=== PATIENT | female | born 1980 | race Caucasian/White ===

== ENCOUNTER → 2016-10-03 | Outpatient (CLI) | payer OTHER ==
[~2016-10-03] MED LIST: SULF800T23 PO
== END | disposition home or self-care (01) ==
LOC: C.PAPS 09:09
PROVIDERS: ATTEND Physician Assistant
DX: Z01.419 Encounter for gynecological examination (general) (routine) without abnormal findings (principal)

== ENCOUNTER → 2016-10-03 | Outpatient (CLI) | payer OTHER ==
[2016-10-03 15:57] LABS: URINE APPEARANCE CLEAR (CLEAR); URINE BILIRUBIN NEG (NEG); URINE COLOR YELLOW; URINE NITRITE NEG (NEG); URINE PH 6.5 (4.5-7.5); URINE SPECIFIC GRAVITY 1.005 (1.000-1.030); UROBILINOGEN NEG (NEG)
[2016-10-03 16:03] LABS: MANUAL MICROSCOPIC REQUIRED? NO; REVIEW REQ? NO
[2016-10-06 13:59] LABS: CHLAMYDIA TRACH RNA*** NOT DETECTED (NOT DETECTED); GC (NEIS GONORRHOEAE)RNA** NOT DETECTED (NOT DETECTED)
== END | disposition home or self-care (01) ==
LOC: C.LABSPEC 15:46
PROVIDERS: ATTEND Physician Assistant
DX: Z11.3 Encounter for screening for infections with a predominantly sexual mode of transmission (principal); R39.9 Unspecified symptoms and signs involving the genitourinary system

== ENCOUNTER → 2016-10-03 | Outpatient (CLI) | payer OTHER ==
[2016-10-03 14:38] LABS: HEMATOCRIT 40.5 % (37-47); MEAN CELL VOLUME 93.3 fL (80-100); MEAN CORPUSCULAR HEMOGLOBIN 31.1 pg (25-34); MEAN CORPUSCULAR HGB CONC 33.3 g/dl (32-36); MEAN PLATELET VOLUME 10.8 fL (7.4-10.4); PLATELET COUNT 235 K/uL (130-400); RED BLOOD COUNT 4.34 M/uL (4.2-5.4); WHITE BLOOD COUNT 7.68 K/uL (4.8-10.8)
[2016-10-03 14:55] LABS: PREG INTERNAL NEGATIVE QC NEG CLEAR BACKGROUND; PREG INTERNAL POSITIVE QC POS CONTROL LINE
[2016-10-04 23:21] LABS: RAPID PLASMA REAGIN NONREACTIVE (NONREACT)
== END | disposition home or self-care (01) ==
LOC: C.LAB1850 13:04
PROVIDERS: ATTEND Physician Assistant
DX: N92.0 Excessive and frequent menstruation with regular cycle (principal); Z11.3 Encounter for screening for infections with a predominantly sexual mode of transmission

== ENCOUNTER 2017-03-25 02:40 | Emergency (ER) | payer OTHER ==
[~2017-03-25] VITALS: Ht 162.6 cm; Wt 79.5 kg
[2017-03-25 02:42] VITALS: TEMP 36.6; Ht 162.6 cm; Wt 79.5 kg
[2017-03-25 03:13] LABS: BASO % 0.3 %; BASO ABS # 0.04 K/uL (0-0.2); COMPLETE YES; EOS % 1.8 %; IG% 0.3 %; LYMPH % 30.2 %; LYMPH ABS # 4.47 K/uL (1.2-3.4); MEAN CELL VOLUME 92.5 fL (80-100); MEAN CORPUSCULAR HEMOGLOBIN 31.6 pg (25-34); MEAN CORPUSCULAR HGB CONC 34.2 g/dl (32-36); MEAN PLATELET VOLUME 10.1 fL (7.4-10.4); MONO % 7.9 %; NEUT % 59.5 %; PLATELET COUNT 226 K/uL (130-400); RED BLOOD COUNT 3.89 M/uL (4.2-5.4)
[2017-03-25 03:18] LABS: URINE APPEARANCE CLEAR (CLEAR); URINE BILIRUBIN NEG (NEG); URINE COLOR YELLOW; URINE EPITHELIAL CELL AUTO >30 /lpf (0-5); URINE NITRITE NEG (NEG); URINE PH 5.5 (4.5-7.5); URINE SPECIFIC GRAVITY 1.011 (1.000-1.030); UROBILINOGEN NEG (NEG); ZZUR CULT IF INDIC CLEAN CATCH YES
[2017-03-25 03:32] LABS: MANUAL MICROSCOPIC REQUIRED? NO; REVIEW REQ? YES
--- NOTE | 2017-03-25 03:33 | EMERGENCY ROOM VISIT NOTE ---
History First contact with patient: 02:46 Chief Complaint: URINARY SYMPTOMS Stated Complaint: KIDNEY PAIN Nursing Triage Summary: Pain in left flank for a few days, now moving to right. Hx of kidney infections. Associated nausea. History of Present Illness The patient is a 37 year old female who presents to the Emergency Room with complaints of flank pain and urinary symptoms for the past few days. The patient states that she has had dysuria for the past 4 days. She has developed pain which started in the right low back and has now moved to the left flank. She states that her symptoms initially did feel similar to UTI as she has had in the past. She denies any associated fevers. She reports nausea, but denies vomiting. She rates her discomfort a 7/10. She denies history of kidney infections or stones. Review of Systems A complete 10 point review of systems was reviewed with the patient with pertinent positives and negatives as per history of present illness. All else were negative. Social History Smoking Status: Current Every Day Smoker Alcohol Use: occasionally Drug Use: cocaine, marijuana Marital Status: single Current/Historical Medications Scheduled Sulfa/Trimethoprim (Bactrim Ds 800MG/160MG), 1 TAB PO BID Physical Exam Vital Signs Date Time Temp Pulse Resp B/P (MAP) Pulse Ox O2 Delivery O2 Flow Rate FiO2 03/25/17 06:15 89 17 127/82 100 03/25/17 04:59 101 15 129/90 100 Room Air 03/25/17 02:42 36.6 87 18 122/72 100 Room Air Physical Exam VITALS: Vitals are noted on the nurse's note and reviewed by myself. Vital signs stable. GENERAL: This is a 37-year-old female, in no acute distress, nondiaphoretic, well-developed well-nourished. HEART: Regular rate and rhythm without murmurs gallops or rubs. LUNGS: Clear to auscultation bilaterally without wheezes, rales or rhonchi. ABDOMEN: Positive bowel sounds x 4. Soft, nontender to palpation. There is no CVA tenderness. NEURO: Patient was alert and oriented to person place and time. Medical Decision & Procedures ER Provider Diagnostic Interpretation: US RENAL: Mild right hydronephrosis. Scarring lower pole of the right kidney. No left hydronephrosis. Lobulated contour versus scarring involving the left kidney. Bilateral ureteral jets demonstrated. No other abnormalities. Radiologist: Ean Hernandez MD CT ABDOMEN & PELVIS WITH CONTRAST: Mild dilatation of the right ureter and right renal pelvis. Adjacent stranding. Consider recently passed calculus or other mildly obstructing soft tissue process distally. There is also suggestion of urothelial enhancement which can be seen with collecting system infection. Correlate with urinalysis/ clinically. Right renal parenchyma is fairly mild tenderness. No abscess identified. Radiologist: Ean Hernandez MD Laboratory Results 03/25/17 03:00 Red Blood Count 3.89, Mean Corpuscular Volume 92.5, Mean Corpuscular Hemoglobin 31.6, Mean Corpuscular Hemoglobin Concent 34.2, Mean Platelet Volume 10.1, Neutrophils (%) (Auto) 59.5, Lymphocytes (%) (Auto) 30.2, Monocytes (%) (Auto) 7.9, Eosinophils (%) (Auto) 1.8, Basophils (%) (Auto) 0.3, Neutrophils # (Auto) 8.81, Lymphocytes # (Auto) 4.47, Monocytes # (Auto) 1.17, Eosinophils # (Auto) 0.26, Basophils # (Auto) 0.04 03/25/17 03:00 Test 03/25/17 02:55 03/25/17 03:00 Urine Color YELLOW Urine Appearance CLEAR (CLEAR) Urine pH 5.5 (4.5-7.5) Urine Specific Brandon 1.011 (1.000-1.030) Urine Protein NEG (NEG) Urine Glucose (UA) NEG (NEG) Urine Ketones NEG (NEG) Urine Occult Blood 3+ (NEG) Urine Nitrite NEG (NEG) Urine Bilirubin NEG (NEG) Urine Urobilinogen NEG (NEG) Urine Leukocyte Esterase SMALL (NEG) Urine WBC (Auto) 10-30 /hpf (0-5) Urine RBC (Auto) 0-4 /hpf (0-4) Urine Hyaline Casts (Auto) 0 /lpf (0-5) Urine Epithelial Cells (Auto) >30 /lpf (0-5) Urine Bacteria (Auto) 1+ (NEG) Urine Renal Epithelial Cells /lpf (0-5) White Blood Count 14.80 K/uL (4.8-10.8) Red Blood Count 3.89 M/uL (4.2-5.4) Hemoglobin 12.3 g/dL (12.0-16.0) Hematocrit 36.0 % (37-47) Mean Corpuscular Volume 92.5 fL (80-100) Mean Corpuscular Hemoglobin 31.6 pg (25-34) Mean Corpuscular Hemoglobin Concent 34.2 g/dl (32-36) Platelet Count 226 K/uL (130-400) Mean Platelet Volume 10.1 fL (7.4-10.4) Neutrophils (%) (Auto) 59.5 % Lymphocytes (%) (Auto) 30.2 % Monocytes (%) (Auto) 7.9 % Eosinophils (%) (Auto) 1.8 % Basophils (%) (Auto) 0.3 % Neutrophils # (Auto) 8.81 K/uL (1.4-6.5) Lymphocytes # (Auto) 4.47 K/uL (1.2-3.4) Monocytes # (Auto) 1.17 K/uL (0.11-0.59) Eosinophils # (Auto) 0.26 K/uL (0-0.5) Basophils # (Auto) 0.04 K/uL (0-0.2) RDW Standard Deviation 45.1 fL (36.4-46.3) RDW Coefficient of Variation 13.3 % (11.5-14.5) Immature Granulocyte % (Auto) 0.3 % Immature Granulocyte # (Auto) 0.05 K/uL (0.00-0.02) Anion Gap 6.0 mmol/L (3-11) Est Creatinine Clear Calc Drug Dose 122.8 ml/min Estimated GFR () 132.1 Estimated GFR (Non- 114.0 BUN/Creatinine Ratio 10.3 (10-20) Calcium Level 8.4 mg/dl (8.5-10.1) Total Bilirubin 0.2 mg/dl (0.2-1) Aspartate Amino Transf (AST/SGOT) 18 U/L (15-37) Alanine Aminotransferase (ALT/SGPT) 23 U/L (12-78) Alkaline Phosphatase 54 U/L (45-117) Total Protein 6.7 gm/dl (6.4-8.2) Albumin 3.5 gm/dl (3.4-5.0) Globulin 3.2 gm/dl (2.5-4.0) Albumin/Globulin Ratio 1.1 (0.9-2) Lipase 372 U/L (73-393) Medications Administered Medications (Trade) Dose Ordered Sig/Joe Route Start Time Stop Time Status Last Admin Dose Admin Morphine Sulfate (MoRPHine SULFATE INJ) 6 mg NOW STAT IV 03/25/17 05:01 03/25/17 05:02 DC 03/25/17 05:07 6 MG Ceftriaxone Sodium (Rocephin Inj) 1 gm NOW STAT IV 03/25/17 05:23 03/25/17 05:25 DC 03/25/17 05:54 1 GM Potassium Chloride (Klor-Con Tab) 20 meq NOW STAT PO 03/25/17 05:23 03/25/17 05:25 DC 03/25/17 05:54 20 MEQ ED Course The patient was evaluated as above. Labs were drawn and IV access was obtained. The patient initially declined any analgesics. Imaging studies were performed and read by radiology as above. Patient was reevaluated and requested something for pain. She was given 6 mg morphine. 1 g Rocephin was ordered. Discharge instructions were reviewed with the patient. The patient verbalized understanding of my assessment and treatment plan and was discharged home in good condition. Medical Decision Differential diagnosis includes kidney stone, pyelonephritis, cholecystitis, pancreatitis, appendicitis, bowel obstruction, among others. The patient is a 37-year-old female who presents today complaining of flank pain and urinary symptoms. Labs revealed leukocytosis of 14,000. Patient is afebrile. CT scan did show evidence of hydronephrosis and I feel this is likely secondary to an early pyelonephritis or recently passed kidney stone. Urinalysis did show bacteria and will be sent for culture. Patient will be placed on Bactrim. She was given 1 g Rocephin in the emergency department. She has not been vomiting. She was advised to return for worsening symptoms. Based on the patient's presentation and work up, I feel the patient is stable for outpatient treatment. The patient was educated to return to the emergency department for any worsening of their current condition or new/concerning symptoms. She will follow up with her PCP. Impression Primary Impression: Pyelonephritis Departure Information Dispostion Home / Self-Care Condition GOOD Prescriptions Sulfa/Trimethoprim (Bactrim Ds 800MG/160MG) Tab 1 TAB PO BID for 10 Days, #20 TAB Prov: Roula Carrillo .RICK 11/26/17 Referrals No Doctor, Assigned (PCP) Patient Instructions My [facility] Additional Instructions You have been treated in the Emergency Department for a Urinary Tract Infection (UTI)/kidney infection. You have been prescribed Bactrim to be taken twice daily as prescribed. This is an antibiotic. All antibiotics have the potential to cause diarrhea. Stop this medication and contact a medical provider if you were to develop any significant adverse side effects including: wheezing, shortness of breath, passing out, vomiting, or a diffuse rash. Always take antibiotics as directed and COMPLETE the ENTIRE course regardless of the improvement of your symptoms. Your potassium was slightly low today. Tried to increase potassium in her diet. This should be rechecked by her primary care provider. Drink plenty of water and stay well hydrated. As with any trip to the Emergency Department, you should follow-up with your Primary Care Provider from today's visit. Return to the emergency department if your symptoms persist despite treatment plan outlined above or if the following symptoms occur: increased fevers, chills , low back pain, nausea/vomiting, or blood in your urine.
[2017-03-25 03:38] LABS: BUN/CREATININE RATIO 10.3 (10-20); CALCIUM 8.4 mg/dl (8.5-10.1); CREATININE 0.64 mg/dl (0.60-1.20)
[2017-03-25 03:40] LABS: ALB/GLOB RATIO 1.1 (0.9-2)
[2017-03-25] MEDS ORDERED: OPTIRAY 320 IV PRN (04:45)
[2017-03-25] MEDS ORDERED: MoRPHine SULFATE 10 MG/ML CARP/VIAL IV STA (05:01)
[2017-03-25] MEDS ORDERED: POTASSIUM CHLORIDE 20 MEQ TABCR PO STA (05:23)
[2017-03-25] MEDS ORDERED: CEFTRIAXONE SOD INJ 1 GM ADDVIAL IV STA (05:23)
[2017-03-25] MEDS ORDERED: SULF800T23 PO (05:49)
[2017-03-25 06:15] VITALS: BP 127/82; PULSE 89; O2SAT 100
--- NOTE | 2017-03-25 07:04 | DIAGNOSTIC IMAGING REPORT ---
RENAL ULTRASOUND HISTORY: b/l flank pain, urinary sxs COMPARISON: None. FINDINGS: Right kidney: 11.8 cm. Mild right hydronephrosis. Normal corticomedullary differentiation. Scarring within the lower pole the right kidney. Left kidney: 12.1 cm. No hydronephrosis. Normal corticomedullary differentiation and cortical thickness. Lobular contour. Bladder: No bladder wall thickening. The bilateral ureteral jets were identified. IMPRESSION: 1. Mild right hydronephrosis. 2. No left-sided hydronephrosis. Electronically signed by: Jhon Joseph M.D. 03/25/2017 7:02 AM Dictated Date/Time: 03/25/2017 7:01 AM
--- NOTE | 2017-03-25 07:24 | DIAGNOSTIC IMAGING REPORT ---
ABDOMEN AND PELVIS CT WITH IV CONTRAST CT DOSE: 561.34 mGy.cm HISTORY: b/l flank pain, leukocytosis TECHNIQUE: Multiaxial CT images of the abdomen and pelvis were performed following the use of intravenous contrast. A dose lowering technique was utilized adhering to the principles of ALARA. COMPARISON STUDY: None. FINDINGS: The lung bases are clear. No fractures within the visualized osseous structures. The liver, gallbladder, spleen, adrenal glands, and pancreas are unremarkable. No retroperitoneal lymphadenopathy. An intrauterine device is in good position. Small cysts within the right ovary. Normal left ovary. The bladder is unremarkable. The kidneys enhance normally. Mild urothelial thickening within the right ureter with mild edema at the right renal pelvis/proximal right ureter. No renal or ureteral calculi. Mild dilatation of the right renal pelvis. No bowel wall thickening or obstruction. Normal appendix. IMPRESSION: 1. Mild urothelial thickening and surrounding edema within the right ureter. There is also mild dilatation of the right renal pelvis. Findings favor a pyelitis/pyelonephritis. Recommend correlation with urinalysis. 2. Normal left kidney. 3. No renal or ureteral calculi. 4. No bowel wall thickening or obstruction. Electronically signed by: Jhon Joseph M.D. 03/25/2017 7:23 AM Dictated Date/Time: 03/25/2017 7:17 AM
--- NOTE | 2017-03-27 11:37 | Pharmacy Progress Note ---
ED Pharmacist Culture FollowUp Date of Service: Mar 27, 2017. Patient was sent home with a prescription for bactrim, which should cover the serratia growing from the patient's urine culture.
== END 2017-03-25 06:17 | disposition home or self-care (01) ==
LOC: C.EDB 02:41 → C.EDA 06:17
DX: N12 Tubulo-interstitial nephritis, not specified as acute or chronic (principal); F17.200 Nicotine dependence, unspecified, uncomplicated; F14.90 Cocaine use, unspecified, uncomplicated; F12.90 Cannabis use, unspecified, uncomplicated